=== PATIENT | female | born 1970 | race Hispanic/Latino ===

== ENCOUNTER 2017-03-01 18:35 | Emergency (ER) | payer SELFPAY ==
[~2017-03-01] VITALS: Ht 167.6 cm; Wt 80.0 kg
[~2017-03-01 18:35] MED LIST: INDOCIN25 MG OR; LORTAB 7.5 OR; NO HOME MEDS; ZPAK OR
[2017-03-01 19:23] LABS: HEMATOCRIT 29.7 % (37.0-47.0); HEMOGLOBIN 9.6 g/dl (12.0-16.0); IMMATURE GRANULOCYTES 0.2 % (0.0-1.0); MEAN CELL VOLUME 83.9 fL CALC (80.0-100.0); MEAN CORPUSCULAR HGB 27.1 pG CALC (26.0-32.0); MEAN CORPUSCULAR HGB CONC 32.3 g/L CALC (32.0-36.0); NEUT# 4.43 thou/uL (2.00-7.15); RED BLOOD COUNT 3.54 mill/uL (4.20-5.60)
[2017-03-01 19:36] LABS: BARBITURATES NEGATIVE (NEGATIVE); COCAINE NEGATIVE (NEGATIVE); METHADONE NEGATIVE (NEGATIVE); OXCYCODONE NEGATIVE (NEGATIVE); TETRAHYDROCANNABIONOL NEGATIVE (NEGATIVE); TRICYLIC ANTIDEPRESSANTS NEGATIVE (NEGATIVE)
[2017-03-01 19:37] LABS: URINE BILIRUBIN - DIPSTICK NEGATIVE (NEGATIVE); URINE BLOOD DIPSTICK NEGATIVE (NEGATIVE); URINE COLOR YELLOW; URINE GLUCOSE - DIPSTICK NEGATIVE (NEGATIVE); URINE KETONE NEGATIVE (NEGATIVE); URINE LEUK ESTERASE NEGATIVE (NEGATIVE); URINE NITRITE - DIPSTICK NEGATIVE (Negative); URINE PROTEIN - DIPSTICK NEGATIVE (NEG-TRACE); URINE UROBILINOGEN - DIPSTICK 0.2 E.U./dL (0.2)
[2017-03-01 19:38] LABS: URINE CLARITY CLEAR
[2017-03-01 19:40] LABS: ALBUMIN 4.2 g/dL (3.2-5.0); ALKALINE PHOSPHATASE 84 u/l (38-126); ANION GAP 16 (6-22 (CALC)); BILIRUBIN, TOTAL 0.2 mg/dL (0.0-1.4); BUN 9 mg/dL (7-17); BUN/CREATININE RATIO 12 (12-20 (CALC)); CALCIUM 8.9 mg/dL (8.4-10.2); CARBON DIOXIDE 21 mmol/l (22-30); CHLORIDE 108 mmol/l (95-108); CREATININE 0.8 mg/dL (0.5-1.0); GFR > 60 ML/MIN (>=60 (CALC)); GFR FOR AFR.AMER. > 60 ML/MIN (>=60 (CALC)); GLUCOSE 159 mg/dL (65-105); POTASSIUM 3.3 mmol/l (3.5-5.1); SGOT/AST 23 u/l (14-36); SGPT/ALT 15 u/l (9-52); SODIUM 142 mmol/l (137-146); TOTAL PROTEIN 7.3 g/dL (6.3-8.2)
[2017-03-01 19:41] LABS: ACT PARTIAL THROMBO TIME 22.8 SECONDS (20.0-32.5); PROTHROMBIN TIME 10.7 SECONDS (9.0-12.5)
[2017-03-01 19:46] LABS: INFLUENZA A NONE DETECTED (NONE DETECT); INFLUENZA B NONE DETECTED (NONE DETECT)
[2017-03-01 19:52] LABS: MYOGLOBIN 15 ng/mL (0 - 62)
[2017-03-01 21:23] VITALS: BP 121/72
== END 2017-03-01 21:24 | disposition left against medical advice (07) | DRG 313 ==
LOC: ED 18:35
PROVIDERS: Emergency Medicine
DX: R07.9 Chest pain, unspecified (principal); R55 Syncope and collapse; J45.909 Unspecified asthma, uncomplicated; Z91.19 Patient's noncompliance with other medical treatment and regimen

== ENCOUNTER 2017-08-29 16:42 | Emergency (ER) | payer SELFPAY ==
[~2017-08-29] VITALS: Ht 167.6 cm; Wt 60.0 kg
[2017-08-29 17:26] LABS: URINE BILIRUBIN - DIPSTICK NEGATIVE (NEGATIVE); URINE BLOOD DIPSTICK LARGE (NEGATIVE); URINE CLARITY SL CLOUDY; URINE COLOR ORANGE; URINE GLUCOSE - DIPSTICK 100 mg/dL (NEGATIVE); URINE KETONE NEGATIVE (NEGATIVE); URINE LEUK ESTERASE LARGE (NEGATIVE); URINE NITRITE - DIPSTICK POSITIVE (Negative); URINE PH 7.5 (4.5-8.0); URINE PROTEIN - DIPSTICK >=300 mg/dL (NEG-TRACE); URINE UROBILINOGEN - DIPSTICK >=8.0 E.U./dL (0.2)
[2017-08-29 17:30] LABS: HEMATOCRIT 27.4 % (37.0-47.0); HEMOGLOBIN 8.5 g/dl (12.0-16.0); IMMATURE GRANULOCYTES 0.4 % (0.0-1.0); MEAN CELL VOLUME 76.3 fL CALC (80.0-100.0); MEAN CORPUSCULAR HGB 23.7 pG CALC (26.0-32.0); NEUT# 10.13 thou/uL (2.00-7.15); RED BLOOD COUNT 3.59 mill/uL (4.20-5.60); RED CELL DISTRI WIDTH 17.1 % (11.5-15.5)
[2017-08-29 17:31] LABS: URINE SQUAMOUS EPITHELIAL CELL MODERATE EPI/hpf (0-FEW); URINE WBC TNTC WBC/hpf (0-5)
[2017-08-29 17:42] LABS: ALBUMIN 4.1 g/dL (3.2-5.0); ALKALINE PHOSPHATASE 102 u/l (38-126); ANION GAP 13 (6-22 (CALC)); BILIRUBIN, TOTAL 0.4 mg/dL (0.0-1.4); BUN 8 mg/dL (7-17); BUN/CREATININE RATIO 14 (12-20 (CALC)); CARBON DIOXIDE 25 mmol/l (22-30); CHLORIDE 103 mmol/l (95-108); CREATININE 0.6 mg/dL (0.5-1.0); GFR > 60 ML/MIN (>=60 (CALC)); GFR FOR AFR.AMER. > 60 ML/MIN (>=60 (CALC)); SGOT/AST 19 u/l (14-36); SGPT/ALT 28 u/l (9-52); SODIUM 137 mmol/l (137-146); TOTAL PROTEIN 7.6 g/dL (6.3-8.2)
[2017-08-29 17:43] LABS: POTASSIUM 4.1 mmol/l (3.5-5.1)
[2017-08-29] MEDS ORDERED: CIPROFLOXACN500 MG PO (18:31)
[2017-08-29] MEDS ORDERED: PYRIDIUM200 MG PO (18:31)
[2017-08-29 18:42] VITALS: BP 136/54
== END 2017-08-29 19:35 | disposition home or self-care (01) | DRG 690 ==
LOC: ED 16:42
DX: N39.0 Urinary tract infection, site not specified (principal); B96.20 Unspecified Escherichia coli [E. coli] as the cause of diseases classified elsewhere

== ENCOUNTER 2018-10-20 15:36 | Emergency (ER) | payer SELFPAY ==
[~2018-10-20] VITALS: Ht 167.6 cm; Wt 65.9 kg
[~2018-10-20 15:36] MED LIST changes: +CIPROFLOXACN500 MG PO; +PYRIDIUM200 MG PO
[2018-10-20 16:53] LABS: HEMATOCRIT 31.1 % (37.0-47.0); HEMOGLOBIN 9.6 g/dl (12.0-16.0); IMMATURE GRANULOCYTES 0.3 % (0.0-5.0); MEAN CELL VOLUME 79.5 fL CALC (80.0-100.0); MEAN CORPUSCULAR HGB 24.6 pG CALC (26.0-32.0); MEAN CORPUSCULAR HGB CONC 30.9 g/L CALC (32.0-36.0); NEUT# 3.59 thou/uL (2.00-7.15); RED BLOOD COUNT 3.91 mill/uL (4.20-5.60); RED CELL DISTRI WIDTH 17.2 % (11.5-15.5)
[2018-10-20 17:00] LABS: BARBITURATES NEGATIVE (NEGATIVE); COCAINE NEGATIVE (NEGATIVE); METHADONE NEGATIVE (NEGATIVE); OXCYCODONE NEGATIVE (NEGATIVE); TETRAHYDROCANNABIONOL NEGATIVE (NEGATIVE); TRICYLIC ANTIDEPRESSANTS NEGATIVE (NEGATIVE)
[2018-10-20 17:03] LABS: ALBUMIN 4.2 g/dL (3.2-5.0); ALKALINE PHOSPHATASE 102 u/l (38-126); ANION GAP 11 (6-22 (CALC)); BILIRUBIN, TOTAL 0.3 mg/dL (0.0-1.4); BUN 6 mg/dL (7-17); BUN/CREATININE RATIO 11 (12-20 (CALC)); CARBON DIOXIDE 26 mmol/l (22-30); CHLORIDE 108 mmol/l (95-108); CREATININE 0.6 mg/dL (0.5-1.0); GFR > 60 ML/MIN (>=60 (CALC)); GFR FOR AFR.AMER. > 60 ML/MIN (>=60 (CALC)); SGOT/AST 26 u/l (14-36); SODIUM 141 mmol/l (137-146); TOTAL PROTEIN 7.5 g/dL (6.3-8.2)
[2018-10-20] MEDS ORDERED: FIORICET PO (17:59)
[2018-10-20 18:07] VITALS: BP 158/88
== END 2018-10-20 18:22 | disposition home or self-care (01) | DRG 103 ==
LOC: ED 15:36
PROVIDERS: Emergency Medicine
DX: R51 Headache (principal)

== ENCOUNTER 2019-08-12 13:01 | Emergency (ER) | payer SELFPAY ==
[~2019-08-12 13:01] MED LIST changes: +FIORICET PO
[2019-08-12 13:35] LABS: HEMATOCRIT 34.7 % (37.0-47.0); HEMOGLOBIN 11.4 g/dl (12.0-16.0); IMMATURE GRANULOCYTES 0.4 % (0.0-5.0); MEAN CELL VOLUME 87.4 fL CALC (80.0-100.0); MEAN CORPUSCULAR HGB 28.7 pG CALC (26.0-32.0); MEAN CORPUSCULAR HGB CONC 32.9 g/dL CAL (32.0-36.0); NEUT# 4.36 thou/uL (2.00-7.15); RED BLOOD COUNT 3.97 mill/uL (4.20-5.60); RED CELL DISTRI WIDTH 15.2 % (11.5-15.5); URINE BILIRUBIN - DIPSTICK NEGATIVE (NEGATIVE); URINE BLOOD DIPSTICK NEGATIVE (NEGATIVE); URINE COLOR YELLOW; URINE GLUCOSE - DIPSTICK NEGATIVE (NEGATIVE); URINE KETONE NEGATIVE (NEGATIVE); URINE LEUK ESTERASE NEGATIVE (NEGATIVE); URINE NITRITE - DIPSTICK NEGATIVE (Negative); URINE PH 7.5 (4.5-8.0); URINE PROTEIN - DIPSTICK NEGATIVE (NEG-TRACE); URINE UROBILINOGEN - DIPSTICK 0.2 E.U./dL (0.2)
[2019-08-12 13:53] LABS: ALKALINE PHOSPHATASE 87 u/l (38-126); AMYLASE 54 u/l (30-110); ANION GAP 12 (6-22 (CALC)); BILIRUBIN, TOTAL 0.4 mg/dL (0.0-1.4); BUN 9 mg/dL (7-17); BUN/CREATININE RATIO 20 (12-20 (CALC)); CARBON DIOXIDE 27 mmol/l (22-30); CHLORIDE 100 mmol/l (95-108); CREATININE 0.4 mg/dL (0.5-1.0); GFR > 60 ML/MIN (>=60 (CALC)); GFR FOR AFR.AMER. > 60 ML/MIN (>=60 (CALC)); LIPASE 134 u/l (23-300); POTASSIUM 4.3 mmol/l (3.5-5.1); SGOT/AST 29 u/l (14-36); SODIUM 134 mmol/l (137-146); TOTAL PROTEIN 7.2 g/dL (6.3-8.2)
[2019-08-12] MEDS ORDERED: MIRALAX3350 N1 PO (15:12)
[2019-08-12 15:16] VITALS: BP 142/81
== END 2019-08-12 15:24 | disposition home or self-care (01) | DRG 392 ==
LOC: ED 13:01
PROVIDERS: Emergency Medicine
DX: K59.00 Constipation, unspecified (principal)

== ENCOUNTER 2021-08-06 10:48 | Observation (INO) | payer SELFPAY ==
[2021-08-06] VITALS (16 sets, daily range): BP systolic 117–146; BP diastolic 71–97
[~2021-08-06] VITALS: Ht 167.6 cm; Wt 70.0 kg
[~2021-08-06 10:48] MED LIST changes: +MIRALAX3350 N1 PO
[2021-08-06 11:28] LABS: HEMATOCRIT 40.1 % (37.0-47.0); HEMOGLOBIN 12.8 g/dl (12.0-16.0); IMMATURE GRANULOCYTES 0.2 % (0.0-5.0); MEAN CORPUSCULAR HGB 30.1 pG CALC (26.0-32.0); MEAN CORPUSCULAR HGB CONC 31.9 g/dL CAL (32.0-36.0); NEUT# 11.34 thou/uL (2.00-7.15); RED BLOOD COUNT 4.25 mill/uL (4.20-5.60); RED CELL DISTRI WIDTH 13.2 % (11.5-15.5)
[2021-08-06] MEDS ORDERED: MACROBID100 M1 PO (11:29)
[2021-08-06] MEDS ORDERED: TAMSULOSIN HCL0.4 MG PO (11:29)
[2021-08-06] MEDS ORDERED: DICLOFENAC75 MG PO (11:30)
[2021-08-06 11:32] LABS: MEAN CELL VOLUME 94.4 fL CALC (80.0-100.0)
[2021-08-06 11:32] LABS: URINE BILIRUBIN - DIPSTICK NEGATIVE (NEGATIVE); URINE BLOOD DIPSTICK NEGATIVE (NEGATIVE); URINE COLOR YELLOW; URINE GLUCOSE - DIPSTICK NEGATIVE (NEGATIVE); URINE KETONE NEGATIVE (NEGATIVE); URINE LEUK ESTERASE TRACE (NEGATIVE); URINE PROTEIN - DIPSTICK NEGATIVE (NEG-TRACE); URINE UROBILINOGEN - DIPSTICK 0.2 E.U./dL (0.2)
[2021-08-06 11:38] LABS: ALBUMIN 4.3 g/dL (3.2-5.0); ALKALINE PHOSPHATASE 126 u/l (38-126); BILIRUBIN, TOTAL 0.3 mg/dL (0.0-1.4); BUN 9 mg/dL (7-17); BUN/CREATININE RATIO 17 (12-20 (CALC)); CARBON DIOXIDE 25 mmol/l (22-30); CHLORIDE 103 mmol/l (95-108); CREATININE 0.5 mg/dL (0.5-1.0); GFR FOR AFR.AMER. > 60 ML/MIN (>=60 (CALC)); GFR OTHER RACES > 60 ML/MIN (>=60 (CALC)); LIPASE 92 u/l (23-300); SGOT/AST 28 u/l (14-36); SODIUM 139 mmol/l (137-146); TOTAL PROTEIN 7.9 g/dL (6.3-8.2)
[2021-08-06 11:40] LABS: ANION GAP 15 (6-22 (CALC))
[2021-08-06 11:46] LABS: URINE NITRITE - DIPSTICK NEGATIVE (Negative)
[2021-08-07 04:02] VITALS: BP 135/75
[2021-08-07 05:32] LABS: HEMATOCRIT 34.7 % (37.0-47.0); HEMOGLOBIN 11.2 g/dl (12.0-16.0); MEAN CELL VOLUME 95.1 fL CALC (80.0-100.0); MEAN CORPUSCULAR HGB 30.7 pG CALC (26.0-32.0); MEAN CORPUSCULAR HGB CONC 32.3 g/dL CAL (32.0-36.0); RED BLOOD COUNT 3.65 mill/uL (4.20-5.60); RED CELL DISTRI WIDTH 13.3 % (11.5-15.5)
[2021-08-07 05:48] LABS: ANION GAP 13 (6-22 (CALC)); BUN 8 mg/dL (7-17); BUN/CREATININE RATIO 16 (12-20 (CALC)); CARBON DIOXIDE 24 mmol/l (22-30); CHLORIDE 105 mmol/l (95-108); CREATININE 0.5 mg/dL (0.5-1.0); GFR FOR AFR.AMER. > 60 ML/MIN (>=60 (CALC)); GFR OTHER RACES > 60 ML/MIN (>=60 (CALC)); MAGNESIUM 1.8 mg/dL (1.6-2.3); POTASSIUM 4.2 mmol/l (3.5-5.1); SODIUM 138 mmol/l (137-146)
[2021-08-07 07:18] VITALS: BP 119/64
[2021-08-07 08:49] VITALS: BP 119/64
[2021-08-07 17:00] VITALS: BP 150/62
[2021-08-07 17:32] VITALS: BP 156/93
[2021-08-07 19:03] VITALS: BP 148/77
[2021-08-08 04:19] VITALS: BP 121/61
[2021-08-08 05:10] LABS: HEMATOCRIT 33.2 % (37.0-47.0); HEMOGLOBIN 10.5 g/dl (12.0-16.0); IMMATURE GRANULOCYTES 0.1 % (0.0-5.0); MEAN CORPUSCULAR HGB 30.3 pG CALC (26.0-32.0); MEAN CORPUSCULAR HGB CONC 31.6 g/dL CAL (32.0-36.0); NEUT# 4.5 thou/uL (2.00-7.15); RED BLOOD COUNT 3.46 mill/uL (4.20-5.60); RED CELL DISTRI WIDTH 13.5 % (11.5-15.5)
[2021-08-08 05:18] LABS: ANION GAP 11 (6-22 (CALC)); BUN 7 mg/dL (7-17); BUN/CREATININE RATIO 12 (12-20 (CALC)); CARBON DIOXIDE 28 mmol/l (22-30); CHLORIDE 107 mmol/l (95-108); CREATININE 0.5 mg/dL (0.5-1.0); GFR FOR AFR.AMER. > 60 ML/MIN (>=60 (CALC)); GFR OTHER RACES > 60 ML/MIN (>=60 (CALC)); MAGNESIUM 2.1 mg/dL (1.6-2.3); POTASSIUM 4.4 mmol/l (3.5-5.1); SODIUM 142 mmol/l (137-146)
[2021-08-08 06:45] VITALS: BP 138/74
[2021-08-08 08:00] VITALS: BP 138/74
[2021-08-08] MEDS ORDERED: LEVAQUIN750 M1 PO (12:24)
[2021-08-08] MEDS ORDERED: ASPERCREME LIDOCA4 % TD (12:25)
== END 2021-08-08 12:53 | disposition home or self-care (01) | DRG 690 ==
LOC: ED 10:48 → ED-I 14:20 → ED 14:58 → MS2 14:59
PROVIDERS: Family Medicine; Nurse Practitioner; ADMIT Hospitalist; ATTEND Hospitalist
DX: N12 Tubulo-interstitial nephritis, not specified as acute or chronic (principal); I71.4 Abdominal aortic aneurysm, without rupture; Z87.442 Personal history of urinary calculi
CPT/HCPCS: G0378

== ENCOUNTER 2022-09-01 13:30 | Observation (INO) | payer SELFPAY ==
[~2022-09-01] VITALS: Ht 167.6 cm; Wt 73.0 kg
[2022-09-01] VITALS (33 sets, daily range): BP systolic 126–169; BP diastolic 72–107
[~2022-09-01 13:30] MED LIST changes: +ASPERCREME LIDOCA4 % TD; +DICLOFENAC75 MG PO; +LEVAQUIN750 M1 PO; +MACROBID100 M1 PO; +TAMSULOSIN HCL0.4 MG PO
--- NOTE | 2022-09-01 13:50 | NUR ---
PATIENT PRESENTS TO THE ED BY POSITIVE TRANSPORT AFTER A SYNCOPLE EPISODE AT WORK. PATIENT IS VERY STUPORIOUS AND IS HAVING DIFFICULTY KEEPING HER EYES OPEN. PATIENT STATES THI9S HAS HAPPENED TO HER BEFORE. BLOOD SUGAR 86. STROKE ALERT CALLED AT THIS TIME.
[2022-09-01 14:03] LABS: BASO% 0.4 % (0-3); EOS% 0.6 % (0-8); IMMATURE GRANULOCYTES 0.1 % (0.0-5.0); LYMPH% 37.4 % (15-41); MEAN CELL VOLUME 92.5 fL CALC (80.0-100.0); MEAN CORPUSCULAR HGB 29.7 pG CALC (26.0-32.0); MEAN CORPUSCULAR HGB CONC 32.1 g/dL CAL (32.0-36.0); MONO% 7.9 % (2-13); NEUT# 4.3 thou/uL (2.00-7.15); NEUT% 53.6 % (42-76); RED BLOOD COUNT 4.38 mill/uL (4.20-5.60)
[2022-09-01 14:10] LABS: HEMATOCRIT 40.5 % (37.0-47.0)
[2022-09-01 14:20] LABS: ALBUMIN 4.3 g/dL (3.2-5.0); ALKALINE PHOSPHATASE 102 u/l (38-126); ANION GAP 12 (6-22 (CALC)); BILIRUBIN, TOTAL 0.3 mg/dL (0.02-1.3); BUN 8 mg/dL (7-17); BUN/CREATININE RATIO 14 (12-20 (CALC)); CARBON DIOXIDE 26 mmol/l (22-30); CHLORIDE 106 mmol/l (95-108); CREATININE 0.6 mg/dL (0.5-1.0); GFR FOR AFR.AMER. > 60 ML/MIN (>=60 (CALC)); GFR OTHER RACES > 60 ML/MIN (>=60 (CALC)); POTASSIUM 3.8 mmol/l (3.5-5.1); SGOT/AST 29 u/l (14-36); SODIUM 141 mmol/l (137-146); TOTAL PROTEIN 7.2 g/dL (6.3-8.2)
--- NOTE | 2022-09-01 14:20 | NUR ---
RETURNED FROM RADIOLOGY WHERE CT WAS COMPLETED. PATIENT ALLERGIC TO IODINE SO CTA NOT DONE. PATIENT STATES SHE NEEDED TO GO TO THE BATHROOM. PATIENT IS UNABLE TO SIT UP AT THE BEDSIDE WITHOURT LOOSING BALANCE. PATIENT ASSISTED BY NURSE TO BEDSIDE COMMODE. URINE OBTAINED.
[2022-09-01] MEDS ORDERED: BISOPROL FUM5 MG PO (14:30)
[2022-09-01 15:05] LABS: URINE BILIRUBIN - DIPSTICK NEGATIVE (NEGATIVE); URINE BLOOD DIPSTICK NEGATIVE (NEGATIVE); URINE COLOR YELLOW; URINE GLUCOSE - DIPSTICK NEGATIVE (NEGATIVE); URINE KETONE NEGATIVE (NEGATIVE); URINE LEUK ESTERASE TRACE (NEGATIVE); URINE PH 6.5 (4.5-8.0); URINE PROTEIN - DIPSTICK NEGATIVE (NEG-TRACE); URINE SPECIFIC GRAVITY <=1.005; URINE UROBILINOGEN - DIPSTICK 0.2 E.U./dL (0.2)
[2022-09-01 15:07] LABS: URINE NITRITE - DIPSTICK NEGATIVE (Negative)
--- NOTE | 2022-09-01 16:25 | NUR ---
GLENDA [id number] GVEN TO SALO RN IN ICU. PATIENT TRANSFERED TO THE FLOOR.
--- NOTE | 2022-09-01 16:45 | NUR ---
REPORT RECIEVED OVER THE PHONE FROM ED RN. PT BROUGHT TO ICU BY STRETCHER WITH IV. PT IS ALERT AND ORIENTED. PT WAS ABLE TO SCOOT FROM STRETCHER TO BED WITHOUT ASSISTANCE. SPEECH CLEAR. HEART RHYTHM REGULAR; PT IS NSR/ SINUS ONEIL. PT DENIES ANY CARDIAC HISTORY. LUNGS CLEAR. PT DENIES SOB. NO COUGH. PT ON RA. BOWEL SOUNDS ACTIVE. ABDOMEN SOFT AND NON-DISTENDED. LAST BM REPORTED TO BE THIS MORNING. PULSES STRONG ALL EXTREMETIES. SKIN WARM/DRY/INTACT. PT PARTICIPATED IN [facility] ASSESSMENT. PT FOLLOWS COMMANDS. L ARM DRIFTED BUT DID NOT HIT BED. R ARM DRIFTED TO BED BUT PT WAS ABLE TO BRING ARM BACK UP MULTIPLE TIMES AND HOLD FOR 2-3 SECONDS REPEATEDLY. LEGS DRIFTED TO BED WITHOUT EFFORT FROM PT; HOWEVER PT WAS ABLE TO RAISE LEGS FROM BED TO RAISED POSITION ON HER OWN 2-3 TIMES EACH SIDE. WHEN PERFORMING SENSORY PORTION OF EXAM, PT COULD FEEL BOTH RIGHT AND LEFT SIDED TOUCH, BUT WHEN ASKED WHICH SIDE SHE ALWAYS RESPONDED "RIGHT SIDE." PT IS ABLE TO REPOSITION HERSELF INDEPENDENTLY, AND HOLD / DRINK GLASS OF WATER WITHOUT COORDINATION ISSUES. FAMILY AT BEDSIDE. CALL LIGHT IN REACH. PT DENIES ANY PAIN OR NEEDS AT THIS TIME.
--- NOTE | 2022-09-01 18:03 | NUR ---
PT SITTING UP IN BED EATING DINNER. FAMILY AT BEDSIDE. VSS.
--- NOTE | 2022-09-01 19:00 | NUR ---
REPORT RECIEVED; UPON ASSESSING PT, MARY RN ASSISTED PT TO BSC DURING OUR REPORT AND PT WAS ABLE TO STAND ON HER OWN AND GET BACK IN BED BEFORE I ENTERED BACK INTO THE ROOM. PT IS ALERT AND ORIENTED AND HAS NO COMPLAINTS AT THIS TIME. [facility] CHARTED. VSS, NAD. CALL LIGHT WITHIN REACH. TWO DAUGHTERS AT BEDSIDE.
--- NOTE | 2022-09-01 20:00 | NUR ---
PT FAMILY LEFT; PT RESTING, STATES NO NEEDS AT THIS TIME. VSS, NAD. CALL LIGHT WITHIN REACH.
--- NOTE | 2022-09-01 21:16 | NUR ---
PT UP TO BSC AGAIN WITH JUST STAND BY ASSIST. STEADY AND STRONG ON FEET. VSS. NAD. COMPLETED ORTHOSTATIC VITALS WHILE PT WAS GETTING UP TO BSC. LYING - 126/77; SITTING - 145/95; STANDING - 149/97. DO DIZZINESS REPORTED. VSS, NAD.
--- NOTE | 2022-09-01 21:41 | NUR ---
PT IS SINUS ARRYTHMIA FROM 40 BMP TO 70 BMP. PT RESTING AND HAS NO CO DIZZINESS AT THIS TIME. ALL OTHER VSS. NAD. CALL LIGHT WITHIN REACH. STRIPS PRINTED AND IN CHART.
[2022-09-02] VITALS (17 sets, daily range): BP systolic 103–165; BP diastolic 61–96
--- NOTE | 2022-09-02 | NUR ---
PT RESTING WITH EYES CLOSED. VSS, NAD.
--- NOTE | 2022-09-02 02:00 | NUR ---
PATIENT REMAINS RESTING WITH EYES CLOSED. VSS. NAD.
--- NOTE | 2022-09-02 06:00 | NUR ---
PT REMAINS RESTING. VSS. SINUS ARRYTHMIA. PT NAD.
--- NOTE | 2022-09-02 08:00 | NUR ---
REPORT RECIEVED FROM NIGHT RN. PT LYING IN BED. PT IS A/O, AMBULATING WITHOUT DIFFICULTY TO RESTROOM. [facility] PERFORMED, PT SCORED 1 FOR REPORTED SENSATION DIFFERENCE; PT REPORTS FEELING LESS STIMULI ON R SIDE. LUNGS CLEAR, PT IS RA, NO COUGH OR SOB. HEART RHYTHM REGULAR; PT REPORTED TO DROP LOW 39BPM AT NIGHT BUT DID NOT SUSTAIN. CURRENT HR 50-60'S. BOWEL SOUNDS ACTIVE. PULSES STRONG ALL EXTREMETIES. SKIN WARM/DRY/INTACT. PT DENIES ANY PAIN OR NEEDS AT THIS TIME. CALL LIGHT IN REACH.
--- NOTE | 2022-09-02 08:30 | NUR ---
DR. BARBER AT BEDSIDE TO ASSESS PT. ORDERS RECIEVED TO PLACE CARDIOLOGY CONSULT.
--- NOTE | 2022-09-02 09:25 | NUR ---
PT BROUGHT TO MRI AND WAS THEN FOUND TO HAVE BRACES. PT HAD PREVIOUSLY DENIED ANY METAL DURING MRI SCREENING. PT BROUGHT BACK TO ICU. MADE AWARE.
[2022-09-02] MEDS ORDERED: AMLODIPINE BESYL5 MG PO (10:42)
[2022-09-02] MEDS ORDERED: ADLT ASA LOW81 MG PO (10:42)
--- NOTE | 2022-09-02 10:55 | NUR ---
TELE-CARDIOLOGY CONSULT COMPLETED.
--- NOTE | 2022-09-02 11:45 | NUR ---
PT EDUCATED ON DISCHARGE INSTRICTIONS. ALL QUESTIONS ANSWERED. IV'S REMOVED. PT DRESSED ON HER OWN AND AMBULATED WITHOUT DIFFICULTY. ALL BELONGINGS SENT HOME WITH PATIENT. PT LEFT WITH FAMILY; WAS TAKEN OUT OF HOSPITAL BY WHEELCHAIR. PT IN GOOD CONDITION UPON DISCHARGE.
== END 2022-09-02 11:40 | disposition home or self-care (01) | DRG 312 ==
LOC: ED 13:30 → ICU 15:37
PROVIDERS: Nurse Practitioner; ADMIT Internal Medicine; ATTEND Internal Medicine
DX: R55 Syncope and collapse (principal); R42 Dizziness and giddiness; R00.1 Bradycardia, unspecified; R53.1 Weakness; R07.89 Other chest pain; R51.9 Headache, unspecified; I10 Essential (primary) hypertension; T50.906A Underdosing of unspecified drugs, medicaments and biological substances, initial encounter; Z91.128 Patient's intentional underdosing of medication regimen for other reason; Z91.041 Radiographic dye allergy status